=== PATIENT | female | born 1995 | race African-American/Black ===

== ENCOUNTER 2019-10-02 19:31 | Emergency (ER) | payer OTHER ==
[~2019-10-02] VITALS: Ht 157.5 cm; Wt 85.3 kg
== END 2019-10-02 22:57 | disposition home or self-care (01) ==
LOC: ER 19:31
DX: J11.1 Influenza due to unidentified influenza virus with other respiratory manifestations (principal)

== ENCOUNTER 2021-09-01 02:49 | Inpatient (IN) | payer OTHER ==
[~2021-09-01] VITALS: Ht 157.5 cm; Wt 87.5 kg
--- NOTE | 2021-09-01 03:16 | NUR ---
SE RECIBE FEMINA ALERTA Y ORIENTADA POR KHARI ESFERAS, AMBULANDO. REFIERE QUE PRESENTA DIFICULTAD RESPIRATORIA DESDE MARGE. SE REALIZA EKG Y SE PRESENTA A DR. HONG.
--- NOTE | 2021-09-01 03:21 | NUR ---
MR. HAINES ORIENTA A PACIENTE SOBRE TRATAMIENTO. ROBERT MUESTRAS DE LABORATORIO ORDENADAS. CANALIZA CON AREA DE VENOPUNCION ANIBAL DE EDEMA O ENROJECIMIENTO. ADMINISTRA MEDICAMENTOS ORDENADOS. [place] REALIZA ORDENES DE ABG Y TERAPIAS.
--- NOTE | 2021-09-01 05:05 | NUR ---
SE ROBERT BLOOD CULTURE A PTE X2 Y SE RICH ENVASE DE CULTIVOD DE SPUTO Y SE ORIENTA A PTE. SE RICH MEDICAMENTO KARIN ORDEN MEDICA EL CUAL TOLERA.
--- NOTE | 2021-09-01 07:11 | NUR ---
SE RECIBE PTE FEMENINA DE 25 YRS RAHAT CONCIENTE Y TRANQUILA EN ALEYDA CON BARABDAS ELEVADA, PTE SE OBSERVA CON V/M AL 35% PTE CON H/L PATENTE Y LIRBE DE EDEMA. SE LE ROBERT S/V LA CUAL SE DOCUMETA. SE MANTIENE EN ESPERA DE MEDICO CONSULTOR , SE OBSERVA POR CAMBIOS.
== END 2021-09-04 16:32 | disposition home or self-care (01) | DRG 195 ==
LOC: ER 02:49 → MEDI 11:27 → MEDJ 09-02 19:30
PROVIDERS: ADMIT Internal Medicine; ATTEND Internal Medicine
PROC: 3E0F7SF Introduction of Other Gas into Respiratory Tract, Via Natural or Artificial Opening (ICD-10-PCS; principal; 2021-09-01)
PROC: 3E0F73Z Introduction of Anti-inflammatory into Respiratory Tract, Via Natural or Artificial Opening (ICD-10-PCS; 2021-09-01)
PROC: BW24ZZZ Computerized Tomography (CT Scan) of Chest and Abdomen (ICD-10-PCS; 2021-09-02)
DX: J15.7 Pneumonia due to Mycoplasma pneumoniae (principal); J18.9 Pneumonia, unspecified organism; R09.02 Hypoxemia; J45.909 Unspecified asthma, uncomplicated; E66.9 Obesity, unspecified; Z20.822 Contact with and (suspected) exposure to COVID-19

== ENCOUNTER 2023-08-08 00:20 | Emergency (ER) | payer OTHER ==
[~2023-08-08] VITALS: Ht 157.5 cm; Wt 87.1 kg
[2023-08-08] MEDS ORDERED: CLARITIN10 M1 (00:31)
[2023-08-08] MEDS ORDERED: FLONASE16 GM (00:31)
[2023-08-08] MEDS ORDERED: TUSNEL LIQUID178 ML PO (02:36)
[2023-08-08] MEDS ORDERED: MEDROLPACK PO (02:36)
[2023-08-08] MEDS ORDERED: ZITHROMAX500 MG PO (02:36)
[2023-08-08] MEDS ORDERED: IPRAT-ALBUT 0.5-3 ML IH (02:36)
== END 2023-08-08 02:41 | disposition home or self-care (01) ==
LOC: ER 00:21
PROVIDERS: General Practice
DX: J45.909 Unspecified asthma, uncomplicated (principal); Z20.822 Contact with and (suspected) exposure to COVID-19

== ENCOUNTER 2023-12-26 06:40 | Emergency (ER) | payer OTHER ==
[~2023-12-26] VITALS: Ht 157.5 cm; Wt 88.5 kg
[~2023-12-26 06:40] MED LIST: CLARITIN10 M1; FLONASE16 GM; IPRAT-ALBUT 0.5-3 ML IH; MEDROLPACK PO; TUSNEL LIQUID178 ML PO; ZITHROMAX500 MG PO
[2023-12-26] MEDS ORDERED: METHYLPREDNISOLONE SOD SUCC 125 MG VIAL IV STA (08:18)
[2023-12-26] MEDS ORDERED: LEVALBUTEROL HCL 1.25 MG/3 ML SOLUTION IH SCH (08:30)
[2023-12-26 08:45] LABS: HEMATOCRIT 40.6 % (36.0-45.00); HEMOGLOBIN 13.6 g/dL (12.0-15.00); MEAN CELL VOLUME 87.8 fL (80.00-100.00); MEAN CORPUSCULAR HEMOGLOBIN 29.3 pg (27.00-32.0); MEAN CORPUSCULAR HGB CONC 33.4 g/dl (32.0-36.0); PLATELET COUNT 249 K/uL (150-450); RED BLOOD COUNT 4.62 M/uL (4.00-6.00)
== END 2023-12-26 10:24 | disposition home or self-care (01) ==
LOC: ER 06:40
PROVIDERS: General Practice
DX: J45.909 Unspecified asthma, uncomplicated (principal); Z20.822 Contact with and (suspected) exposure to COVID-19

== ENCOUNTER 2025-01-16 18:38 | Inpatient (IN) | payer OTHER ==
[~2025-01-16] VITALS: Ht 157.5 cm; Wt 83.5 kg
[2025-01-16] MEDS ORDERED: SINGULAIR10 MG PO (18:51)
--- NOTE | 2025-01-16 18:51 | NUR ---
PACIENTE ALERTA Y ORIENTADA X 3. REFIERE DESDE MARGE COMENZO CON DOLOR DE PECHO, TOS, CONGESTION, ESCALOFRIO Y DOLOR DE YEN.
[2025-01-16] MEDS ORDERED: IPRATROPIUM/ALBUTEROL SULFATE 3 ML AMPUL.NEB IH ONE (20:58)
[2025-01-16] MEDS ORDERED: METHYLPREDNISOLONE SOD SUCC 125 MG VIAL ONE (20:59)
[2025-01-16] MEDS ORDERED: GUAIFENESIN/DEXTROMETHORPHAN 100MG/10ML BLIST.PACK PO ONE ×2 (20:59→21:00)
[2025-01-16] MEDS ORDERED: IPRATROPIUM/ALBUTEROL SULFATE 3 ML AMPUL.NEB IH SCH ×2 (21:00→22:50)
[2025-01-16] MEDS ORDERED: METHYLPREDNISOLONE SOD SUCC 125 MG VIAL IV ONE (21:00)
--- NOTE | 2025-01-16 21:19 | NUR ---
SE LE ORIENTA A PACIENTE SOBRE LA ORDEN MEDICA, REFIERE ENTENDER LAS MISMAS. SE LE TARUN LAS MUETRAS, SE LE ADMINISTRAN LOS MEDICAMENTOS Y SE REALIZA LA PLACA KARIN LA ORDEN MEDICA.
[2025-01-16 21:30] LABS: HEMATOCRIT 40.5 % (36.0-45.00); HEMOGLOBIN 13.3 g/dL (12.0-15.00); MEAN CELL VOLUME 88.3 fL (80.00-100.00); MEAN CORPUSCULAR HGB CONC 32.8 g/dl (32.0-36.0); PLATELET COUNT 282 K/uL (150-450); RED BLOOD COUNT 4.59 M/uL (4.00-6.00); RED CELL DISTRIBUTION WIDTH 13.5 % (11.5-14.5)
[2025-01-16 21:48] LABS: ALBUMIN 3.8 gm/dL (3.4-5.0); BILIRUBIN TOTAL 0.45 mg/dL (0.3-1.2); CALCIUM 9.5 mg/dL (8.5-10.1); CREATININE SERUM 0.71 mg/dL (0.55-1.02); GFR 97.32; GLOBULINA 4.7 G/DL (2.4-3.5); POTASSIUM 3.8 mEq/L (3.5-5.1); TOTAL PROTEIN 8.5 gm/dL (6.4-8.2)
[2025-01-16] MEDS ORDERED: 0.9 % SODIUM CHLORIDE 1,000 ML IV SCH (22:45)
[2025-01-16] MEDS ORDERED: AZITHROMYCIN 500 MG VIAL IV ONE (22:45)
[2025-01-16] MEDS ORDERED: CEFTRIAXONE SODIUM 2,000 MG VIAL IV ONE (22:45)
[2025-01-16] MEDS ORDERED: GUAIFEN/DEXTROMETHORPHAN/PE 10 ML BLIST.PACK PO SCH (22:51)
[2025-01-16] MEDS ORDERED: MONTELUKAST SODIUM 10 MG TABLET PO SCH (22:51)
[2025-01-16] MEDS ORDERED: ACETAMINOPHEN 500 MG GEL..CAP PO PRN (23:00)
[2025-01-16] MEDS ORDERED: MAGNESIUM SULFATE 1,000 MG in 0.9 % SODIUM CHLORIDE 50 ML IV ONE (23:00)
[2025-01-17] MEDS ORDERED: METHYLPREDNISOLONE SOD SUCC 40 MG VIAL IV SCH (01:00)
[2025-01-17] MEDS ORDERED: METHYLPREDNISOLONE SOD SUCC 40 MG VIAL ONE (01:40)
[2025-01-17] MEDS ORDERED: CEFTRIAXONE SODIUM 2,000 MG VIAL ONE (01:40)
[2025-01-17] MEDS ORDERED: MONTELUKAST SODIUM 10 MG TABLET PO ONE (01:40)
[2025-01-17] MEDS ORDERED: MAGNESIUM SULFATE 50% 1,000 MG/2 ML VIAL ONE (01:40)
[2025-01-17] MEDS ORDERED: GUAIFEN/DEXTROMETHORPHAN/PE 10 ML BLIST.PACK PO ONE (01:41)
[2025-01-17] MEDS ORDERED: AZITHROMYCIN 500 MG VIAL IV ONE (01:41)
[2025-01-17] MEDS ORDERED: IPRATROPIUM/ALBUTEROL SULFATE 3 ML AMPUL.NEB IH ONE (02:27)
[2025-01-17 02:47] LABS: ABG PH 7.432 (7.35-7.45); ABG PO2 81.7 mmHg (80-100); ABG pCO2 26.4 mmHg (35-45); BASE EXCESS -5.2 mmol/l; BICARBONATE 17.2 mmol/l (23-25); SaO2 96.2 %
[2025-01-17 03:25] LABS: PH,URINE 5.5 (5.0-8.0); URINE APPEARANCE Clear; URINE BILIRRUBIN Negative (NEGATIVE); URINE BLOOD Moderate; URINE COLOR Yellow; URINE GLUCOSE Negative (NEGATIVE); URINE KETONE Negative (NEGATIVE); URINE LEUKOCYTE Negative; URINE NITRATE Negative; URINE PROTEIN Negative (NEGATIVE); URINE UROBILINOGEN 0.2 E.U./dl
[2025-01-17 03:32] LABS: URINE BACTERIA 61.1 uL (0.0-1933); URINE RBC 42.2 uL (0.0-20.8); URINE WBC 4.8 uL (0.0-23.2)
[2025-01-17 03:36] LABS: URINE EPITHELIAL CELLS 0.6 uL (0.0-38.8)
[2025-01-17 04:12] LABS: INR 1.11; PARTIAL THROMBOPLASTIN TIME 34.2 SECONDS (22.0-34.0)
[2025-01-17 04:40] VITALS: BP 114/60; O2SAT 96
[2025-01-17 07:26] LABS: allen test SATISFACTORY; o2 21 %; puncture site RADIAL RIGHT
[2025-01-17] MEDS ORDERED: CEFTRIAXONE SODIUM 2,000 MG in 0.9 % SODIUM CHLORIDE 100 ML IV SCH (09:00)
[2025-01-17] MEDS ORDERED: ENOXAPARIN SODIUM 40 MG/0.4 ML SYRINGE SUBCUTANEO SCH (09:00)
[2025-01-17] MEDS ORDERED: FAMOTIDINE/PF 20 MG in 0.9 % SODIUM CHLORIDE 8 ML IV PUSH SCH (09:00)
[2025-01-17] MEDS ORDERED: AZITHROMYCIN 500 MG in DEXTROSE 5 % IN WATER 250 ML IV SCH (09:00)
[2025-01-17 09:26] VITALS: BP 140/93; O2SAT 96
[2025-01-17] MEDS ORDERED: LACTOBACILLUS ACIDOPHILUS 1 CAP CAP PO SCH (17:00)
[2025-01-17 17:11] VITALS: BP 118/60; O2SAT 97
[2025-01-18 01:14] VITALS: BP 98/57
[2025-01-18 06:23] LABS: ALBUMIN 3.3 gm/dL (3.4-5.0); BILIRUBIN TOTAL 0.18 mg/dL (0.3-1.2); CREATININE SERUM 0.66 mg/dL (0.55-1.02); GFR 105.88; GLOBULINA 3.7 G/DL (2.4-3.5); POTASSIUM 4.76 mEq/L (3.5-5.1)
[2025-01-18 06:37] LABS: HEMATOCRIT 38.1 % (36.0-45.00); HEMOGLOBIN 12.4 g/dL (12.0-15.00); MEAN CELL VOLUME 88.8 fL (80.00-100.00); MEAN CORPUSCULAR HEMOGLOBIN 28.9 pg (27.00-32.0); MEAN CORPUSCULAR HGB CONC 32.5 g/dl (32.0-36.0); PLATELET COUNT 281 K/uL (150-450); RED BLOOD COUNT 4.29 M/uL (4.00-6.00); RED CELL DISTRIBUTION WIDTH 13.5 % (11.5-14.5)
[2025-01-18 09:01] VITALS: BP 107/60
[2025-01-18 16:43] VITALS: BP 117/58; O2SAT 99
[2025-01-18] MEDS ORDERED: FAMOtidine 20 MG TABLET PO SCH (21:00)
[2025-01-19 00:48] VITALS: BP 115/65; O2SAT 98
[2025-01-19 09:03] VITALS: BP 107/71; O2SAT 96
== END 2025-01-19 13:54 | disposition home or self-care (01) | DRG 202 ==
LOC: ER 18:40 → MEDI 23:00
PROVIDERS: General Practice; Preventive Medicine Public Health & General Preventive Medicine; ADMIT Student in an Organized Health Care Education/Training Program; ATTEND Student in an Organized Health Care Education/Training Program
PROC: BW25ZZZ Computerized Tomography (CT Scan) of Chest, Abdomen and Pelvis (ICD-10-PCS; principal; 2025-01-16)
DX: J45.901 Unspecified asthma with (acute) exacerbation (principal); A41.9 Sepsis, unspecified organism; J18.9 Pneumonia, unspecified organism; R65.10 Systemic inflammatory response syndrome (SIRS) of non-infectious origin without acute organ dysfunction